=== PATIENT | male | born 1995 | race Caucasian/White ===

== ENCOUNTER → 2023-03-31 | Outpatient (CLI) | payer OTHER ==
[~2023-03-31] MED LIST: PROHANCE 279.3MG/ML 15ML VIAL ONE; PROHANCE 279.3MG/ML 5ML VIAL ONE
== END ==
LOC: M PLAIMG 07:24
PROVIDERS: ATTEND Physician Assistant
DX: R22.1 Localized swelling, mass and lump, neck (principal)
CPT/HCPCS: 70543; A9576

== ENCOUNTER 2023-07-05 11:19 | Day surgery (SDC) | payer OTHER ==
[~2023-07-05] VITALS: Ht 180.3 cm; Wt 119.7 kg
[~2023-07-05 11:19] MED LIST changes: -PROHANCE 279.3MG/ML 15ML VIAL ONE; -PROHANCE 279.3MG/ML 5ML VIAL ONE; +THERTAB52 PO
[2023-07-05] MEDS ORDERED: LR 1,000 ML IV SCH ×3 (11:35→14:55)
[2023-07-05] MEDS ORDERED: MIDAZOLAM INJ 2MG/2ML VIAL As Ordered ONE (12:28)
[2023-07-05] MEDS ORDERED: fentaNYL 100 MCG/2 ML INJECTION As Ordered ONE (12:28)
[2023-07-05] MEDS ORDERED: LIDOCAINE 2% 100MG/5ML SDV (FOR ANES.) As Ordered ONE (12:29)
[2023-07-05] MEDS ORDERED: SUCCINYLCHOLINE 100MG/5ML SYRINGE As Ordered ONE (12:29)
[2023-07-05] MEDS ORDERED: propofoL 200 MG/20 ML VIAL As Ordered ONE (12:29)
[2023-07-05] MEDS ORDERED: ONDANSETRON 4MG 2ML VIAL As Ordered ONE (12:30)
[2023-07-05] MEDS ORDERED: ROCURONIUM BROMIDE 50MG/5ML VIAL As Ordered ONE (13:02)
[2023-07-05] MEDS: LIDOCAINE W/EPINEPHRINE 1% 20ML VIAL As Ordered ONE (13:35)
[2023-07-05] MEDS: CLINDAMYCIN 900MG/50ML PREMIX BAG As Ordered ONE (13:48)
[2023-07-05] MEDS ORDERED: fentaNYL 100 MCG/2 ML INJECTION IV PRN (14:15)
[2023-07-05] MEDS ORDERED: oxyCODONE 5MG TAB PO PRN (14:15)
[2023-07-05] MEDS ORDERED: HYDROMORPHONE HCL 0.5 MG/ 0.5 ML SYRINGE IV PRN (14:15)
[2023-07-05] MEDS ORDERED: ONDANSETRON 4MG 2ML VIAL IV PRN (14:15)
[2023-07-05] MEDS ORDERED: ANEXSIA, NORCO 7.5MG/325MG TABLET(HYDROCODONE/APAP) PO PRN (15:00)
[2023-07-05 15:29] VITALS: BP 126/66; TEMP 97.9; O2SAT 97
== END 2023-07-05 15:34 | disposition home or self-care (01) ==
LOC: M SDC 11:19
PROVIDERS: ATTEND Otolaryngology
DX: L72.9 Follicular cyst of the skin and subcutaneous tissue, unspecified (principal); L40.9 Psoriasis, unspecified; G43.909 Migraine, unspecified, not intractable, without status migrainosus; F17.218 Nicotine dependence, cigarettes, with other nicotine-induced disorders
CPT/HCPCS: 21556; 88305; J0737; J1100; J2250; J2405; J3010